=== PATIENT | female | born 1995 | race Caucasian/White ===

== ENCOUNTER 2023-02-01 22:50 | Emergency (ER) | payer BC, SELFPAY ==
[2023-02-01 22:54] VITALS: BP 148/95; TEMP 36.6; BMI 32.1
--- NOTE | 2023-02-01 23:17 | ED_ITS ---
HPI - Female Genitourinary General Chief complaint: Urogenital Problems, Female Stated complaint: UTI Time Seen by Provider: 02/01/23 23:02 History of Present Illness HPI Narrative: This 27-year-old female comes in reporting dysuria symptoms over the past 3 or 4 days. She states that she has symptoms of increased frequency and a sense of incomplete voiding. She does not report any fevers. She states that she has had urinary tract infections in the past with symptoms similar to this. She has otherwise been in good health. Related Data Home Medications Medication Instructions Recorded Confirmed No Known Home Medications 02/01/23 02/01/23 Allergies Allergy/AdvReac Type Severity Reaction Status Date / Time No Known Drug Allergies Allergy Verified 02/01/23 22:53 Review of Systems Status of ROS: Reports: 10 or more systems reviewed and unremarkable except as noted in History and below Narrative: Constitutional: No fevers, no weight gain or loss. Eyes: No discharge. No vision changes. HENT: No congestion, no sore throat, no ear pain. Cardiovascular: No chest pain, no palpitations. Respiratory: No shortness of breath, no wheezes, no cough. Gastrointestinal: No abdominal pain, no vomiting, no diarrhea. Genitourinary: No hematuria. Dysuria symptoms as described above. Musculoskeletal: Normal range of motion. Skin: No rashes, no pruritis. Neurological: No dizziness, weakness, sensory change, speech change. Endo/Heme/Allergies: No bruising or bleeding. No polydipsia. Pysch: no suicidality, no anxiety, no insomnia. All other systems reviewed and are negative. Exam Narrative: Exam Narrative: Constitutional: Well-developed, well-nourished, no acute distress. HEENT: Normocephalic, atraumatic. Neck: Normal range of motion. Nontender. Supple. Heart: Intact distal pulses. Lungs: No chest discomfort. No wheezes, rhonchi, or rales. Abdomen: Nontender. Back: Normal range of motion. Extremities: Normal range of motion. No injury. Skin: Intact. No rash. Warm. No erythema or pallor. Neurologic: No altered sensation. No weakness. Alert and oriented. Psychiatric: No suicidality. No anxiety or depression. No insomnia. Nursing notes and vitals signs are reviewed. Const: Vital Signs, click to edit/add: Vital Signs - 24 hr 02/01/23 22:54 Temperature 97.9 F Blood Pressure [Ri ght Upper Arm] 148/95 H Oxygen Delivery Me thod Room Air Course Vital Signs Vital signs: Initial Vital Signs Temperature 97.9 F 02/01/23 22:54 Temperature Source Temporal Artery Scan 02/01/23 22:54 Pulse Rhythm Regular 02/01/23 22:54 Blood Pressure 148/95 H 02/01/23 22:54 Blood Pressure Mean 112 H 02/01/23 22:54 Blood Pressure Position Supine 02/01/23 22:54 Oxygen Delivery Method Room Air 02/01/23 22:54 Vital Signs Temperature 97.9 F 02/01/23 22:54 Blood Pressure 148/95 H 02/01/23 22:54 Oxygen Delivery Method Room Air 02/01/23 22:54 Temperature 97.9 F 02/01/23 22:54 Blood Pressure 148/95 H 02/01/23 22:54 Oxygen Delivery Method Room Air 02/01/23 22:54 MDM - Female Genitourinary MDM Narrative Medical decision making narrative: This patient presents with dysuria symptoms that are suspicious for urinary tract infection. Urinalysis is obtained and does show evidence of such infection. Patient received an [employer] prescription for Bactrim. Lab Data Labs: Lab Results 02/01/23 Range/Units 23:10 Urine Color Yellow (Yellow) Urine Appearance Cloudy A (Clear) Urine pH 7.0 (5.0-8.5) Ur Specific [place] 1.020 (1.000-1.030) Urine Protein Negative (Negative) Urine Glucose (UA) Negative (Negative) Urine Ketones Negative (Negative) Urine Blood Trace-intact A (Negative) Urine Nitrite Negative (Negative) Urine Bilirubin Negative (Negative) Urine Urobilinogen 0.2 (0.2-1.0) Ur Leukocyte Esterase Trace A (Negative) Urine RBC 0-2 (0-2) Urine WBC 5-10 A (0-5) Ur Squamous Epith Cells Few (None-Few) Amorphous Sediment Moderate A (None) Urine Bacteria Moderate A (None) Urine Mucus Few A (None) Discharge Plan Discharge Clinical Impression: Urinary tract infection Condition: Unchanged Additional Instructions: Take medication as prescribed. Drink plenty of fluids. Follow up with MD or return if worsening. Prescriptions: No Action No Known Home Medications Follow Up/Referrals: Angelic Lang MD [Staff Physician] - Stand Alone Forms: [employer] Info Instructions
[2023-02-01 23:20] LABS: Appearance Urine Cloudy (Clear); Bilirubin Urine Negative (Negative); Blood Urine Trace-intact (Negative); Color Urine Yellow (Yellow); Glucose Urine Negative (Negative); Ketones Urine Negative (Negative); Leukocyte Esterase Urine Trace (Negative); Nitrite Urine Negative (Negative); Protein Urine Negative (Negative); Urobilinogen Urine 0.2 (0.2-1.0)
[2023-02-01 23:27] LABS: Amorphous Sediment Urine Moderate; Bacteria Urine Moderate; RBC Urine 0-2 (0-2); Squamous Epithelial Cell Urine Few (None-Few)
[2023-02-01 23:28] LABS: Mucus Urine Few
== END 2023-02-01 23:40 | disposition home or self-care (01) ==
PROVIDERS: Emergency Provider Emergency Medicine Emergency Medical Services; PCP Family Medicine
DX: N39.0 Urinary tract infection, site not specified (principal)
CPT/HCPCS: 81001; 87086; 87186; 99283; 99284

== ENCOUNTER 2024-02-26 17:40 | Emergency (ER) | payer BC, SELFPAY ==
[2024-02-26 17:44] VITALS: BP 157/108; PULSE 102; RESP 16; TEMP 37.7; O2SAT 96; BMI 34.0
--- NOTE | 2024-02-26 18:04 | ED_ITS ---
HPI - General Adult General Chief complaint: Skin/Abscess/Foreign Body Stated complaint: rash on back Time Seen by Provider: 02/26/24 17:42 Source: patient Mode of arrival: ambulatory Limitations: no limitations History of Present Illness HPI narrative: Patient is a 28-year-old female presenting to the emergency department for couple different complaints. Her main complaint is she has a erythematous rash on the most lateral aspect of her right lower trunk. She 1st noticed this a couple days ago. She states it is itchy just over the area but no pain is associated with this. States the entire derm to home isn't sensitive and the only area of itchiness is directly over the patch of rash she has. Has never had a rash like this before. She has also been having epigastric pain for the past few days he is she states went away when she took Tums this morning. Has had some associated nausea to. She is concerned she could be . He denies fevers, chills, chest pain, shortness of breath, weakness, diarrhea, constipation, headache, vision changes. Related Data Previous Rx's ?Medication ?Instructions ?Recorded fluticasone propionate 0.05 % 1 applic topical DAILY 5 days #15 02/26/24 topical cream grams Allergies Allergy/AdvReac Type Severity Reaction Status Date / Time No Known Drug Allergies Allergy Verified 02/01/23 22:53 Review of Systems Status of ROS: Reports: 10 or more systems reviewed and unremarkable except as noted in History and below [facility] Social History Do you use any of these nicotine containing products: Vaping Products How often do you have a drink containing alcohol: never AUDIT-C Alcohol total score: 0 Non-prescribed substance use: denies use Exam Narrative: Exam Narrative: Const: Well-nourished, Well-developed, in no distress Eyes: PERRL, no conjunctival injection, and symmetrical lids HENT: Atraumatic external nose and ears. Moist mucous membranes. Neck: Symmetric, trachea midline, No thyromegaly. CVS: RRR, No murmurs or gallops. Peripheral pulses 2+ and equal in all extremities RESP: Unlabored respiratory effort. Clear to auscultation bilaterally. GI: Nontender/Nondistended, No rebound or guarding. MSK:Extremities w/o deformity, Normal Active ROM Skin: Warm, Dry. 1 cm x 3 cm raised red rash on her right lateral lower trunk along the midaxillary line Neuro: Normal Muscle tone, No focal neurological deficits. Psych: Awake, Alert, & Oriented x3. Appropriate mood and affect. Const: Vital Signs, click to edit/add: Vital Signs - 24 hr 02/26/24 17:44 Temperature 99.8 F H Pulse Rate [Right Radial] 102 H Respiratory Rate 16 Blood Pressure [Le ft Upper Arm] 157/108 H Pulse Oximetry 96 Oxygen Delivery Me thod Room Air Course Vital Signs Vital signs: Initial Vital Signs Temperature 99.8 F H 02/26/24 17:44 Temperature Source Temporal Artery Scan 02/26/24 17:44 Pulse Rate 102 H 02/26/24 17:44 Pulse Rhythm Regular 02/26/24 17:44 Respiratory Rate 16 02/26/24 17:44 Blood Pressure 157/108 H 02/26/24 17:44 Blood Pressure Mean 124 H 02/26/24 17:44 Pulse Oximetry 96 02/26/24 17:44 Oxygen Delivery Method Room Air 02/26/24 17:44 Vital Signs Temperature 99.8 F H 02/26/24 17:44 Pulse Rate 102 H 02/26/24 17:44 Respiratory Rate 16 02/26/24 17:44 Blood Pressure 157/108 H 02/26/24 17:44 Pulse Oximetry 96 02/26/24 17:44 Oxygen Delivery Method Room Air 02/26/24 17:44 Temperature 99.8 F H 02/26/24 17:44 Pulse Rate 102 H 02/26/24 17:44 Respiratory Rate 16 02/26/24 17:44 Blood Pressure 157/108 H 02/26/24 17:44 Pulse Oximetry 96 02/26/24 17:44 Oxygen Delivery Method Room Air 02/26/24 17:44 Medical Decision Making [facility] Narrative Medical decision making narrative: Patient is a 28-year-old female presenting for couple different complaints. For the rash does not appear to be shingles. Also does not appear to be an allergic reaction. I am unsure exactly what this rash is but her main complaint about it right now as it is itchy and is unlikely to be a sign of a more serious issue. She is having some epigastric discomfort and nausea though so give her some Zofran for nausea and order CBC, CMP, lipase. Also do urinalysis and urine test. Lab work shows no concerning abnormalities. Patient is doing well in a room. She is feeling better with the Zofran. Will prescribe her Zofran at home and concerns her epigastric pain improved with the Tums is likely some chronic gastritis. Will have her keep using antacids at home will send Zofran to [facility]. For the rash does not appear to be shingles and is only itchy. Does not appear to be spreading. Could be a contact dermatitis. Will have her use some topical steroids and Zyrtec. She is agreeable to this plan. Lab Data Labs: Lab Results 02/26/24 02/26/24 Range/Units 18:10 18:23 WBC 11.12 H (4.50-11.00) K/uL RBC 4.40 (4.00-5.20) m/uL Hgb 14.1 (12.0-16.0) gm/dL Hct 42.8 (33.0-51.0) % MCV 97 (80-100) fL MCH 32 (26-34) pg MCHC 33 (32-36) gm/dL RDW Coeff of [place] 11.9 (11.5-15.5) % Plt Count 375 (140-440) K/uL Neut % (Auto) 70.4 (42.0-72.0) % Lymph % (Auto) 18.3 L (20-44) % [place] % (Auto) 9.7 (0.0-11.0) % Eos % (Auto) 1.0 (0.0-7.0) % Baso % (Auto) 0.3 (0.0-3.0) % Neut # (Auto) 7.80 H (1.7-7.0) K/uL Lymph # (Auto) 2.00 (0.90-2.90) K/uL [place] # (Auto) 1.10 H (0.00-0.90) K/UL Eos # (Auto) 0.10 (0.00-0.50) K/uL Baso # (Auto) 0.00 (0.00-0.30) K/uL Abs Immat Gran (auto) 0.00 (0.00-0.30) K/uL Imm/Tot Granulo (auto) 0.3 % Sodium 137 (135-149) mmol/L Potassium 4.0 (3.6-5.1) mmol/L Chloride 97 (96-114) mmol/L Carbon Dioxide 28 (20-32) mmol/L Anion Gap 12 (7-15) mEq/L BUN 20 (5-24) mg/dL Creatinine 0.8 (0.5-1.5) mg/dL Estimated Creat Clear 77.59 Estimated GFR 102 ml/min Glucose 123 H (60-115) mg/dL Calcium 9.7 (8.4-10.6) mg/dL Total Bilirubin 0.4 (0.1-1.5) mg/dL AST 27 (12-35) U/L ALT 27 (4-35) U/L Alkaline Phosphatase 95 (40-150) U/L Total Protein 8.0 (6.0-8.3) g/dL Albumin 4.8 (3.3-5.0) g/dL Lipase 52 (23-300) U/L Urine Color Dark yellow (Yellow) Urine Appearance Clear (Clear) Urine pH 6.0 (5.0-8.5) Ur Specific [place] >= 1.030 (1.000-1.030) Urine Protein Negative (Negative) Urine Glucose (UA) Negative (Negative) Urine Ketones Negative (Negative) Urine Blood Negative (Negative) Urine Nitrite Negative (Negative) Urine Bilirubin Negative (Negative) Urine Urobilinogen 0.2 (0.2-1.0) Ur Leukocyte Esterase Negative (Negative) Urine RBC 0-2 (0-2) Urine WBC 0-2 (0-5) Ur Squamous Epith Cells Few (None-Few) Urine Bacteria Few A (None) Urine HCG, Qual Negative (Negative) Discharge Plan Discharge Clinical Impression: Rash, Gastritis Patient Disposition: Home, Self-Care Condition: Improved Instructions: Gastritis (DC), Contact Dermatitis (DC) Additional Instructions: This rash may be a contact dermatitis. Try taking Zyrtec twice daily and using topical steroid cream. If rash begins to spread or becomes painful you can return for re-evaluation. Use antacids or your stomach pains as seems likely to be gastritis. Also use the Zofran as needed for nausea. Prescriptions: New fluticasone propionate 0.05 % cream 1 applic topical DAILY 5 Days Qty: 15 0RF Follow Up/Referrals: Marlen Ortiz MD [Primary Care Provider] - Stand Alone Forms: [employer] Info Instructions
[2024-02-26 18:28] LABS: Basophils Percent Auto 0.3 % (0.0-3.0); Hematocrit 42.8 % (33.0-51.0); Hemoglobin* 14.1 gm/dL (12.0-16.0); Immature Granulocytes Pct Auto 0.3 %; Lymphocytes Percent Auto 18.3 % (20-44); Mean Corpuscular HGB Conc 33 gm/dL (32-36); Mean Corpuscular Hemoglobin 32 pg (26-34); Mean Corpuscular Volume 97 fL (80-100); Monocytes Percent Auto 9.7 % (0.0-11.0); Neutrophils Percent Auto 70.4 % (42.0-72.0); Platelet Count* 375 K/uL (140-440); RDW Coefficient of Variation % 11.9 % (11.5-15.5); White Blood Count* 11.12 K/uL (4.50-11.00)
[2024-02-26 18:31] LABS: Appearance Urine Clear (Clear); Bilirubin Urine Negative (Negative); Blood Urine Negative (Negative); Color Urine Dark yellow (Yellow); Glucose Urine Negative (Negative); Ketones Urine Negative (Negative); Leukocyte Esterase Urine Negative (Negative); Nitrite Urine Negative (Negative); Protein Urine Negative (Negative); Specific Gravity Urine >= 1.030 (1.000-1.030); Ur HCG Qualitative* Negative (Negative); Urobilinogen Urine 0.2 (0.2-1.0)
[2024-02-26 18:32] LABS: Slide Review Reflex No
[2024-02-26 18:43] LABS: Albumin* 4.8 g/dL (3.3-5.0); Chloride* 97 mmol/L (96-114); Sodium* 137 mmol/L (135-149)
[2024-02-26 18:44] LABS: Bacteria Urine Few; RBC Urine 0-2 (0-2); Squamous Epithelial Cell Urine Few (None-Few); WBC Urine 0-2 (0-5)
[2024-02-26 18:46] LABS: Alkaline Phosphatase* 95 U/L (40-150); Anion Gap 12 mEq/L (7-15); Aspartate Amino Transferase* 27 U/L (12-35); Bilirubin Total* 0.4 mg/dL (0.1-1.5); Blood Urea Nitrogen* 20 mg/dL (5-24); Carbon Dioxide* 28 mmol/L (20-32); Creatinine* 0.8 mg/dL (0.5-1.5); Est. Creatinine Clearance* 77.59; Estimated Glomerular Filt Rate 102 ml/min; Lipase* 52 U/L (23-300)
[2024-02-26 18:47] LABS: Alanine Aminotransferase* 27 U/L (4-35); Calcium* 9.7 mg/dL (8.4-10.6); Glucose* 123 mg/dL (60-115)
== END 2024-02-26 19:12 | disposition home or self-care (01) ==
PROVIDERS: Emergency Provider Student in an Organized Health Care Education/Training Program; PCP Family Medicine
DX: R21 Rash and other nonspecific skin eruption (principal); K29.70 Gastritis, unspecified, without bleeding
CPT/HCPCS: 36415; 80053; 81001; 81025; 83690; 85025; 87086; 99283